=== PATIENT | female | born 1970 | race African-American/Black ===

== ENCOUNTER 2018-10-23 07:46 | Emergency (ER) | payer OTHER ==
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
[2018-10-23 11:29] VITALS: BP 130/85
== END 2018-10-23 11:35 | disposition home or self-care (01) ==
LOC: ER 07:46
DX: S63.502A Unspecified sprain of left wrist, initial encounter (principal); S70.02XA Contusion of left hip, initial encounter; M25.552 Pain in left hip; M25.532 Pain in left wrist; V43.52XA Car driver injured in collision with other type car in traffic accident, initial encounter
CPT/HCPCS: 99283